=== PATIENT | male | born 1970 | race Caucasian/White ===

== ENCOUNTER → 2023-10-23 06:23 | Day surgery (SDC) | payer OTHER, SELFPAY | LOC: GI 06:23 | PROVIDERS: ATTENDING PHYSICIAN Internal Medicine Gastroenterology | DX: Z12.11 Encounter for screening for malignant neoplasm of colon (principal); K62.5 Hemorrhage of anus and rectum; K64.8 Other hemorrhoids; K57.30 Diverticulosis of large intestine without perforation or abscess without bleeding; Z87.19 Personal history of other diseases of the digestive system; Z86.010 Personal history of colon polyps | CPT/HCPCS: G0105 ==

== ENCOUNTER → 2024-11-22 14:08 | Outpatient (REF) | payer OTHER, SELFPAY | LOC: HWRAD 14:08 | PROVIDERS: ATTENDING PHYSICIAN Pain Medicine Interventional Pain Medicine; FAMILY PHYSICIAN Family Medicine | DX: M54.12 Radiculopathy, cervical region (principal) | CPT/HCPCS: 72125 ==